=== PATIENT | male | born 1990 | race Two or more races ===

== ENCOUNTER 2021-07-22 12:55 | Emergency (ER) | payer OTHER ==
[2021-07-22] MEDS ORDERED: NORCO 5-325 TA1 EACH PO (16:34)
== END 2021-07-22 16:56 | disposition home or self-care (01) ==
LOC: FER 12:55
DX: S46.911A Strain of unspecified muscle, fascia and tendon at shoulder and upper arm level, right arm, initial encounter (principal); S80.11XA Contusion of right lower leg, initial encounter; Z23 Encounter for immunization; W31.9XXA Contact with unspecified machinery, initial encounter
CPT/HCPCS: 73030; 73560; 90471; 90715